=== PATIENT | female | born 1980 | race Caucasian/White ===

== ENCOUNTER 2022-12-21 12:56 | Outpatient (CLI) | payer BC | END 2022-12-21 12:57 | disposition home or self-care (01) | LOC: CSHCT 12:56 | PROVIDERS: ATTEND Family Medicine | DX: H54.7 Unspecified visual loss (principal); G25.5 Other chorea; G25.89 Other specified extrapyramidal and movement disorders | CPT/HCPCS: 70450 ==

== ENCOUNTER 2023-02-07 12:44 | Outpatient (CLI) | payer BC ==
[~2023-02-07 12:44] MED LIST: Magnevist 469MG/ML 20 ML VIAL ONE
== END 2023-02-07 12:45 | disposition home or self-care (01) ==
LOC: CSHULT 12:44
PROVIDERS: ATTEND Psychiatry & Neurology Neurology
DX: R42 Dizziness and giddiness (principal)
CPT/HCPCS: 70553; 93306; A9579